=== PATIENT | female | born 1980 | race Caucasian/White ===

== ENCOUNTER → 2017-09-23 | Outpatient (CLI) | payer OTHER | LOC: CIMAGING 07:51 | PROVIDERS: ATTEND Family Medicine | DX: K83.9 Disease of biliary tract, unspecified (principal) | CPT/HCPCS: 76705-PO ==

== ENCOUNTER → 2018-06-08 | Outpatient (CLI) | payer OTHER | LOC: BMCIMAGING 10:05 | PROVIDERS: ATTEND Obstetrics & Gynecology Gynecology | DX: N63.23 Unspecified lump in the left breast, lower outer quadrant (principal) ==

== ENCOUNTER 2018-07-09 05:36 | Day surgery (SDC) | payer OTHER ==
[2018-07-09] MEDS ORDERED: ceFAZolin 2 GM/DEXTROSE 100 ML IV ONE (05:55)
[2018-07-09] MEDS ORDERED: LR 1,000 ML IV ONE (05:56)
[2018-07-09] MEDS ORDERED: BUPIVACAINE 0.5% 30 ML SDV ONE (06:51)
[2018-07-09] MEDS ORDERED: MIDAZOLAM 2 MG/2 ML VIAL IVP ONE ×2 (07:01→07:25)
--- NOTE | 2018-07-09 07:02 | PDANEPAE ---
ANE History of Present Illness left breast mass ANE Past Medical History - Cardiovascular History Hx Hypertension: No Hx Arrhythmias: No Hx Chest Pain: No Hx Coronary Artery / Peripheral Vascular Disease: No Hx CHF / Valvular Disease: No Hx Palpitations: No - Pulmonary History Hx COPD: No Hx Asthma/Reactive Airway Disease: No Hx Recent Upper Respiratory Infection: No Hx Oxygen in Use at Home: No Hx Sleep Apnea: No Sleep Apnea Screening Result - Last Documented: Negative - Neurologic History Hx Cerebrovascular Accident: No Hx Seizures: No Hx Dementia: No - Endocrine History Hx Diabetes: No Hypothyroid: No Hyperthyroid: No Obesity: no - Renal History Hx Renal Disorders: No - Liver History Hx Hepatic Disorders: No - Neurological & Psychiatric Hx Hx Neurological and Psychiatric Disorders: No - Cancer History Hx Cancer: No - Congenital Disorder History Hx Congenital Disorders: No - GI History GERD: no Hx Gastrointestinal Disorders: No - Chronic Pain History Chronic Pain: No - Surgical History Prior Surgeries: JOSH 10/2017 ANE Review of Systems Review of systems is: negative Review of Systems: - Exercise capacity Exercise capacity: >=4 METS METS (RN): 6 METS ANE Patient History - Allergies Allergies/Adverse Reactions: No Known Allergies Allergy (Unverified 09/12/10 11:38) - Home Medications Home medications: home medication list seen and reviewed Home Medications: NK [No Known Home Meds] 07/08/18 [Last Taken Unknown] - NPO status NPO Status: no food or drink >8 hours NPO Since - Liquids (Date): 07/08/18 NPO Since - Liquids (Time): 20:30 NPO Since - Solids (Date): 07/08/18 NPO Since - Solids (Time): 18:00 - Anes Hx Anes Hx: no prior problems - Smoking Hx Smoking Status: Never smoked - Alcohol Use Alcohol Use: Occasionally - Family Anes Hx Family Anes Hx: none ANE Labs/Vital Signs - Vital Signs Vital Signs: reviewed preoperatively; see RN documention for details Blood Pressure: 108/66 Heart Rate: 63 Respiratory Rate: 15 O2 Sat (%): 100 Height: 162.56 cm Weight: 62.596 kg ANE Physical Exam - Airway Neck exam: FROM Mallampati Score: Class 1 Mouth exam: normal dental/mouth exam - Pulmonary Pulmonary: no respiratory distress - Cardiovascular Cardiovascular: regular rate and rhythym - ASA Status ASA Status: I ANE Anesthesia Plan Anesthesia Plan: GA with mask
--- NOTE | 2018-07-09 07:04 | PDHPUP ---
History & Physical Update H&P update statement: This history and physical update is based on an assessment of the patient which was completed after admission or registration (within 24 hours), but prior to the surgery/procedure. H&P update: H&P reviewed & patient examined, no change in patient's condition since H&P completed
[2018-07-09] MEDS ORDERED: MIDAZOLAM 2 MG/2 ML VIAL ONE (07:06)
[2018-07-09] MEDS ORDERED: PROPOFOL 200 MG/20 ML VIAL ONE (07:08)
[2018-07-09] MEDS ORDERED: fentaNYL 100 MCG/2 ML INJ ONE (07:08)
[2018-07-09] MEDS ORDERED: PROPOFOL/EMULSION 500 MG/50 ML BOTTLE IV ONE (07:12)
[2018-07-09] MEDS ORDERED: LIDOCAINE 1% 300 MG/30 ML SDV ONE (07:14)
[2018-07-09] MEDS ORDERED: DEXAMETHASONE 4 MG/ML VIAL ONE ×2 (07:20)
[2018-07-09] MEDS ORDERED: MEPERIDINE 25 MG/0.5 ML AMP IVP PRN (07:49)
[2018-07-09] MEDS ORDERED: NALOXONE HCL 0.4 MG/ML INJ IVP PRN (07:49)
[2018-07-09] MEDS ORDERED: PROMETHAZINE HCL 25 MG/ML INJ IVP PRN (07:49)
[2018-07-09] MEDS ORDERED: oxyCODONE IR 5 MG TAB PO PRN (07:49)
[2018-07-09] MEDS ORDERED: HYDROmorphONE/DILAUDID 2 MG/ML INJ IVP PRN (07:49)
[2018-07-09] MEDS ORDERED: ACETAMINOPHEN 500 MG TAB PO PRN (07:49)
[2018-07-09] MEDS ORDERED: LABETALOL HCL 5 MG/ML 20 ML MDV IVP PRN (07:49)
[2018-07-09] MEDS ORDERED: METOCLOPRAMIDE 10 MG/2 ML VIAL IVP PRN (07:49)
[2018-07-09] MEDS ORDERED: fentaNYL 100 MCG/2 ML INJ IVP PRN (07:49)
[2018-07-09] MEDS ORDERED: ALBUTEROL 3 ML DEYVIAL IH PRN (07:49)
[2018-07-09] MEDS ORDERED: LR 500 ML IV PRN (07:49)
--- NOTE | 2018-07-09 07:49 | POSTOPPROG ---
Post Op Note Date of Operation: 07/09/18 Surgeon: Mickie Hernandez Duplicator Punch Operator: jose Anesthesiologist: milan Anesthesia: IV Sedation Pre-op Diagnosis: L breast mass Post-op Diagnosis: L breast mass Indication: 37 yo with L breast mass Procedure: excision L breast mass Findings: fibrous tissue Inf/Abcess present in the surg proc area at time of surgery?: No EBL: Minimal Specimen(s): L breast mass
[2018-07-09] MEDS ORDERED: PROMETHAZINE HCL 25 MG/ML INJ ONE (08:13)
--- NOTE | 2018-07-09 08:39 | GOP ---
DATE OF OPERATION: 07/09/2018 SURGEON: Mickie Hernandez MD OTHER SPORTS OFFICIAL: Dior Peña PA-C. ANESTHESIA: IV sedation. ANESTHESIOLOGIST: Samuel Roman MD. PREOPERATIVE DIAGNOSIS: Left breast mass. POSTOPERATIVE DIAGNOSIS: Left breast mass. PROCEDURE PERFORMED: Excisional biopsy, left breast. FINDINGS: Fibrous tissue. SPECIMENS: Left breast mass. ESTIMATED BLOOD LOSS: 5 cc. INDICATIONS: The patient is a 37-year-old who developed a palpable lesion in her lower left breast. Ultrasound showed breast parenchyma. She was very concerned about the area and desired excision. DESCRIPTION OF PROCEDURE: The patient was brought into the operating room, placed supine on the tabl e, and monitored anesthesia care with IV sedation was performed. Her left breast was prepped and yanet ped in the usual sterile fashion. I infiltrated all sites with 0.5% Marcaine prior to making the inc ision. I made an inframammary incision. I created a superior and inferior skin flap. I dissected d own beyond the level of the mass. It felt like fibrous tissue. Hemostasis achieved in the cavity. Deep layer closed with a 3-0 Vicryl, skin closed with 3-0 Vicryl, followed by 4-0 Monocryl. Mastisol , Steri-Strips, sterile dressing applied. She was awakened in the operating room, extubated, transfe rred to PACU in stable condition. /[id number]/MODL
--- NOTE | 2018-07-09 08:54 | POSTANESTH ---
Post Anesthetic Evaluation Cardiovascular Status: Normal, Stable Respiratory Status: Normal, Stable Level of Consciousness/Mental Status: Can Participate in Eval Pain Control: Adequate, Prn Tx Ordered Nausea/Vomiting Control: Adequate, Prn Tx Ordered Complications Possibly Related to Anesthesia: None Noted
[2018-07-09 09:10] VITALS: BP 104/61
== END 2018-07-09 09:44 | disposition home or self-care (01) ==
LOC: FSGY 05:36
PROVIDERS: ATTEND Surgery
PROC: 0HBU0ZX Excision of Left Breast, Open Approach, Diagnostic (ICD-10-PCS; principal; 2018-07-09 07:15)
DX: D24.2 Benign neoplasm of left breast (principal); N60.12 Diffuse cystic mastopathy of left breast
CPT/HCPCS: J0690; J1100; J2250; J2550; J2704; J3010